=== PATIENT | female | born 1975 | race African-American/Black ===

== ENCOUNTER 2017-11-11 21:33 | Emergency (ER) | payer BC ==
[~2017-11-11] VITALS: Ht 170.2 cm; Wt 95.0 kg
[2017-11-11] MEDS ORDERED: ONDANSETRON HCL INJ 2 MG/ML VIAL IV STA (21:52)
[2017-11-11] MEDS ORDERED: MORPHINE SULFATE INJ 4 MG/ML INJ IV PRN (22:00)
[2017-11-11] MEDS ORDERED: SODIUM CHLORIDE 0.9% 1000ML 1,000 ML IV ONE (22:00)
[2017-11-11] MEDS ORDERED: GARLIPURE600 MG (22:08)
[2017-11-11] MEDS ORDERED: VITAMIN D400 UNIT PO (22:08)
[2017-11-11] MEDS ORDERED: BIOTIN1 MG PO (22:08)
[2017-11-11] MEDS ORDERED: KETOROLAC TROMETHAMINE 30 MG/ML VIAL IV STA (22:11)
[2017-11-11] MEDS ORDERED: MORPHINE SULFATE INJ 4 MG/ML INJ IV ONE (22:15)
[2017-11-11] MEDS ORDERED: IOPAMIDOL 300MG/ML 100 ML INFUS..BTL IV ONE (22:45)
[2017-11-11 23:11] VITALS: BP 122/74
== END 2017-11-11 23:20 | disposition home or self-care (01) ==
LOC: FSED 21:33
DX: R10.31 Right lower quadrant pain (principal); R11.2 Nausea with vomiting, unspecified; Z82.49 Family history of ischemic heart disease and other diseases of the circulatory system
CPT/HCPCS: 74177; 80053; 81003; 81025; 85025; 99283; J1885; J2405; J7030; Q9967

== ENCOUNTER 2017-11-12 13:04 | Emergency (ER) | payer BC ==
[~2017-11-12] VITALS: Ht 170.2 cm; Wt 94.8 kg
[~2017-11-12 13:04] MED LIST: BIOTIN1 MG PO; GARLIPURE600 MG; VITAMIN D400 UNIT PO
== END 2017-11-12 13:54 | disposition left against medical advice (07) ==
LOC: FSED 13:04
DX: R10.32 Left lower quadrant pain (principal)

== ENCOUNTER 2017-11-12 15:59 | Observation (INO) | payer BC ==
[~2017-11-12] VITALS: Ht 170.2 cm; Wt 94.8 kg
[2017-11-12] MEDS ORDERED: KETOROLAC TROMETHAMINE 30 MG/ML VIAL IV STA (17:03)
[2017-11-12] MEDS ORDERED: DIAZEPAM INJ 5 MG/ML 2 ML IV ONE (18:45)
[2017-11-12] MEDS ORDERED: MORPHINE SULFATE 5 MG/ML VIAL IV ONE (20:00)
[2017-11-12] MEDS: SODIUM CHLORIDE 0.9% 1000ML 1,000 ML IV SCH ×2 (20:01→23:56)
[2017-11-12] MEDS ORDERED: IBUPROFEN 400 MG TAB PO PRN (20:15)
[2017-11-12] MEDS: CEFTRIAXONE SOD 1 GM VIAL IV SCH (20:15)
[2017-11-12] MEDS ORDERED: ONDANSETRON HCL 4 MG ORAL DISINTEGRATING TAB PO PRN (20:15)
[2017-11-12] MEDS ORDERED: MORPHINE SULFATE 2 MG/ML SYR IV ONE (20:15)
[2017-11-12 21:45] VITALS: BP 110/80
[2017-11-12] MEDS: MORPHINE SULFATE 2 MG/ML SYR IV PRN (22:23)
[2017-11-13 00:35] VITALS: BP 111/57
[2017-11-13 04:11] VITALS: BP 117/62
[2017-11-13 06:41] LABS: BASOPHILS % 0.3 % (0.0-1.0); EOSINOPHILS # (AUTO) 0.2 (0.0-0.4); EOSINOPHILS % 2.3 % (0.0-6.0); HEMATOCRIT 29.8 % (34.2-44.1); HEMOGLOBIN 10.3 g/dL (12.0-16.0); LYMPHOCYTES # (AUTO) 1.6 (1.0-3.2); LYMPHOCYTES % 21.3 % (18.0-39.1); MEAN CORPUSCULAR HEMOGLOBIN 29.8 pg (28-32); MEAN CORPUSCULAR HGB CONC 34.6 g/dL (31-35); MEAN CORPUSCULAR VOLUME 86.1 fL (81-99); MONOCYTES # (AUTO) 0.8 (0.2-0.8); MONOCYTES % 10.3 % (4.4-11.3); NEUTROPHILS # (AUTO) 4.8 (2.1-6.9); NEUTROPHILS % 65.4 % (38.7-80.0); PLATELET COUNT 227 x10e3/uL (140-360); RED BLOOD COUNT 3.46 x10e6/uL (3.6-5.1); RED CELL DISTRIBUTION WIDTH 12.8 % (11.7-14.4)
[2017-11-13 07:03] LABS: ALANINE AMINOTRANSFERASE 11 IU/L (0-55); ALBUMIN 3.2 g/dL (3.5-5.0); ALBUMIN/GLOBULIN RATIO 0.9 (0.8-2.0); ALKALINE PHOSPHATASE 57 IU/L (40-150); ANION GAP 10.7 mmol/L (8-16); CALCIUM 8.3 mg/dL (8.4-10.2); CARBON DIOXIDE 22 mmol/L (22-29); CHLORIDE 109 mmol/L (98-107); CREATININE, SERUM 0.82 mg/dL (0.57-1.11); EST GLOMERULAR FILTRATION RATE > 60 ML/MIN (60-); GLUCOSE 93 mg/dL (74-118); POTASSIUM 3.7 mmol/L (3.5-5.1); SODIUM 138 mmol/L (136-145)
[2017-11-13 07:20] LABS: BLOOD UREA NITROGEN 9 mg/dL (7-26); BUN/CREATININE RATIO 11 (6-25)
[2017-11-13 07:33] VITALS: BP 117/62
[2017-11-13 08:00] VITALS: BP 119/66
[2017-11-13] MEDS: CEFTRIAXONE SOD 1 GM VIAL IV SCH (08:01)
[2017-11-13] MEDS: SODIUM CHLORIDE 0.9% 1000ML 1,000 ML IV SCH (08:01)
[2017-11-13] MEDS ORDERED: PANTOPRAZOLE 40 MG 10ML VIAL IV SCH (10:00)
--- NOTE | 2017-11-13 10:15 | History and Physical ---
CHIEF COMPLAINT: Abdominal pain. HISTORY OF PRESENT ILLNESS: This is a 42-year-old woman who presents to [facility] Emergency Room with a 1-day history of intense, nonradiating, left lumbar abdominal pain. The patient states that it is possible the pain is originating in her left flank area and then radiating to her left lumbar abdominal area. The patient states she has no history of kidney stones. According to the patient, she had a urinalysis done in the emergency room, and it was unremarkable; but at this time, we are unable to verify those results. In the emergency room, she was found to have a white blood cell count of 7300 with 65% segmented neutrophils. The patient's BUN and creatinine in the emergency room were 9 and 0.82 respectively. AST and ALT were 14 and 11 respectively. The patient's hepatic transaminases were also within normal limits. The patient underwent a CT of the abdomen with intravenous contrast that revealed numerous low-attenuation masses in the spleen as well as markedly enlarged fibroid uterus, otherwise unremarkable. The patient subsequently underwent a CT of the abdomen and pelvis with oral contrast but without intravenous contrast that revealed bowels within normal limits without abnormal bowel wall thickness or dilatation. No abdominal or pelvic lymph nodes were noted to be pathologically enlarged by CT measurement criteria. The CT of the abdomen and pelvis with oral contrast but without intravenous contrast did not reveal any free air. This imaging study also revealed enlarged uterus with multiple areas of lobulated soft-tissue lesions. The CT of the abdomen with oral contrast but no intravenous contrast did reveal lobulated, hypoattenuating lesions within the spleen of uncertain etiology. The patient was admitted for further evaluation and treatment. REVIEW OF SYSTEMS GENERAL: Weight has been stable. No fever or chills. HEENT: No headache. No vision changes. CARDIOVASCULAR/CHEST: No chest pain. No shortness of breath or cough. GI: Abdominal pain as per HPI. The patient denies any nausea or vomiting, though. The patient states she did have 1 episode of diarrhea today. The patient denies any melena or hematochezia. : No UTI symptoms. NEUROMUSCULAR: No limb weakness or numbness. ALLERGIES: NO KNOWN DRUG ALLERGIES. PAST MEDICAL HISTORY 1. Mild obesity. 2. Hypertensive heart disease. 3. Iron deficiency anemia. 4. Vitamin D deficiency. SURGICAL HISTORY 1. Myomectomy in 2009 to remove uterine fibroids. 2. Left knee arthroscopic surgery. FAMILY HISTORY: Noncontributory. SOCIAL HISTORY: This woman is and lives with her . The patient denies any history of tobacco use, but she does drink alcohol socially. MEDICATIONS 1. Zyrtec 10 mg daily. 2. Multivitamin once daily. 3. Vitamin D3 once daily. 4. Biotin once daily. 5. Vitamin E once daily. PHYSICAL EXAMINATION GENERAL: She is awake, alert, fully oriented, in no distress, very pleasant and cooperative with exam. VITAL SIGNS: Blood pressure is 119/66, pulse 98, respiratory rate 18, temperature 99.7, oxygen saturation 98% on room air. INTEGUMENT: Skin is warm and dry. No pallor, jaundice or diaphoresis. HEENT: Anicteric sclerae with moist mucous membranes. NECK: Supple. CARDIOVASCULAR: Tachycardic rate. Regular rhythm. LUNGS: No rales, no rhonchi, no wheezing. ABDOMEN: Slightly distended and taut. She does have tenderness and guarding in the left lumbar abdominal area. No mass is palpated. The patient has hypoactive bowel sounds in all 4 quadrants. EXTREMITIES: No edema or deformity. NEUROLOGIC: Intact. DIAGNOSES 1. Gastroenteritis, likely. 2. Gastritis, likely. 3. Hypertensive heart disease. 4. Mild obesity, body mass index 32. PLAN 1. Reassurance. 2. Intravenous fluids. 3. Intravenous antibiotics. 4. Supportive care. 5. Pain control. 6. Start an intravenous proton pump inhibitor. 7. Will observe closely. Job#: [id number]
[2017-11-13] MEDS: MORPHINE SULFATE 2 MG/ML SYR IV PRN (11:07)
[2017-11-13 12:00] VITALS: BP 113/68
--- NOTE | 2017-11-13 20:52 | Diagnostic Imaging Report ---
PROCEDURE:ABDOMINAL ULTRASOUND COMPARISON:None. INDICATIONS:LEFT LUMBAR ABDOMINAL PAIN FINDINGS: Exam limited by overlying bowel gas. Liver: 15.1 cm. Normal hepatic parenchymal echogenicity. No focal mass. Main portal vein: 1.0 cm. Hepatopetal flow. Gallbladder: No stones or sludge. 1.2 x 0.8 x 1.3 cm echogenic focus with posterior acoustic shadowing located posterior to the gallbladder is only seen in one position (the decubitus view), and cannot be reproduced in other views No gallbladder wall thickening. Common Bile Duct: 0.5 cm. No echogenic filling defect. Sonographic Mooney's sign: Negative Right kidney: 12.1 cm. Normal echogenicity. Mild right hydronephrosis. 1.9 x 1.6 x 1.3 cm cystic, anechoic lesion in the superolateral aspect Left kidney: 10.9 cm. Normal echogenicity. 2.2 x 2.6 x 1.9 cm cystic, anechoic lesion in the superior to mid aspect. 2.6 x 1.7 x 2.0 cm hypoechoic, well-circumscribed lesion with scattered internal echoes in the mid aspect. No stones, hydronephrosis, or obstruction. Spleen: 10.2 cm. There are 2 mildly hyperechoic, non-shadowing foci in the spleen, which measure 2.8 x 2.5 x 2.7 cm and 2.8 x 2.2 x 2.4 cm. Pancreas: Obscured by overlying bowel gas. Inferior vena cava: Normal. Aorta: Normal. Ascites: None. CONCLUSION: 1. no cholelithiasis or sonographic evidence of cholecystitis. 2. Mild right hydronephrosis. 3. 1.9 cm right and 2.6 cm left simple renal cysts. 4. 2.6 cm lesion in the mid aspect of the left kidney, likely represents a minimally complex cyst. 5. Indeterminate splenic lesions. Recommend CT abdomen with contrast for further evaluation. 6. 1.3 cm echogenic focus posterior to the gallbladder is only seen in one position, and probably represents adjacent air in bowel/stomach. Edgardo Netltes M.D. Dictated by: Edgardo Nettles M.D. on 11/13/2017 at 16:16 Electronically approved by: Edgardo Nettles M.D. on 11/13/2017 at 16:16
--- NOTE | 2017-11-14 13:36 | Discharge Summary ---
ADMIT DIAGNOSES 1. Gastroenteritis, likely. 2. Gastritis, likely. 3. Hypertensive heart disease. 4. Mild obesity. BMI 32. DISCHARGE DIAGNOSES 1. Gastroenteritis, resolving. 2. Hypertensive heart disease. 3. Mild obesity. BMI 32. 4. Left renal cyst (2.6 cm). 5. Mild right hydronephrosis. HOSPITAL COURSE: This is a 42-year-old woman who was initially admitted to [facility] with diagnosis of gastroenteritis and perhaps gastritis. During this hospitalization, the patient improved with supportive care which included intravenous fluids, intravenous pantoprazole and intravenous ceftriaxone. The patient had undergone multiple CT's of the abdomen and pelvis, one with oral contrast and the other with intravenous contrast in the emergency room prior to admission. The computer tomography of the abdomen and pelvis revealed nonspecific findings, but they did reveal low attenuation masses in the spleen as well as a markedly enlarged fibroid uterus. The CT of the abdomen and pelvis with oral contrast revealed bowel within normal limits without abnormal bowel wall thickness or dilatation. Also no abdominal or pelvic lymph nodes. Also, no pathologic abdominal or pelvic lymph nodes were appreciated. During her brief hospitalization, she did undergo an ultrasound of the abdomen that did not reveal any cholelithiasis or sonographic evidence of cholecystitis. However, it did reveal mild right hydronephrosis as well as a 1.9 cm right renal cyst and a 2.6 cm left renal cyst that the radiologist felt could be minimally complex cyst. Also indeterminate splenic lesions were appreciated on the abdominal ultrasound. Although the abdominal ultrasound revealed mild right hydronephrosis, her pain was in the left lumbar abdominal area. The patient unfortunately left against medical advice. Thus, the results of the abdominal sonogram were not relayed to the patient. Her condition at discharge was stable with an overall good prognosis. DISCHARGE MEDICATIONS: 1. Zyrtec 2 mg daily. 2. Multivitamin once daily. 3. Vitamin D3 once daily. 4. Biotin once daily. 5. Vitamin E once daily. FOLLOWUP INSTRUCTIONS: Since the patient left against medical advice, she was not provided any discharge instructions. The nurse, however, did instruct the patient to follow up with her primary care physician, namely myself, Dr. Khris Regalaod, within 1-2 weeks of discharge. KHRIS REGALADO MD Job#: [id number] [facility]
== END 2017-11-13 15:56 | disposition left against medical advice (07) ==
LOC: FSED 15:59 → IMCU 21:09
PROVIDERS: ADMIT Internal Medicine; ATTEND Internal Medicine
DX: K52.9 Noninfective gastroenteritis and colitis, unspecified (principal); I11.9 Hypertensive heart disease without heart failure; E66.9 Obesity, unspecified; Z68.32 Body mass index [BMI] 32.0-32.9, adult; N13.30 Unspecified hydronephrosis; N28.1 Cyst of kidney, acquired; D73.89 Other diseases of spleen; N85.2 Hypertrophy of uterus; Z53.29 Procedure and treatment not carried out because of patient's decision for other reasons
CPT/HCPCS: 36415; 74176; 76700; 80048; 80053; 80076; 81003; 85025 ×2; 96374; 96375; 99284; G0378 ×2; J0696 ×2; J1885; J2270 ×2; J3360; J7030 ×2

== ENCOUNTER → 2017-11-19 | Outpatient (CLI) | payer BC ==
[~2017-11-19] MED LIST changes: +GADOBENATE DIMEGLUMINE 0 ML IV ONE; +GADOBENATE DIMEGLUMINE 1 ML IV ONE
--- NOTE | 2017-11-19 18:32 | Diagnostic Imaging Report ---
EXAM: MRI of the abdomen with and without contrast. INDICATION: Renal cyst and splenic lesions. COMPARISON: Outside CTs dated 11/12/2017 and 11/11/2017. TECHNIQUE: Multiplanar and multisequence imaging was performed of the abdomen. T1 and T2-weighted images were obtained with and without contrast. T1-weighted in and [id number] , Dynamic, post gadolinium T1-weighted spoiled gradient echo scans. IV Contrast: 20 cc of MultiHance Oral Contrast: None. Medications: None Discussion: LOWER THORAX: Unremarkable. HEPATOBILIARY: No focal hepatic lesions. No biliary ductal dilation. GALLBLADDER: No radio-opaque stones or sludge. No wall thickening. SPLEEN: No splenomegaly. There are multiple T1 hypointense heterogeneous T2 hyperintense splenic lesions, the largest measuring 3.4 x 3.1 cm (series 7, image 12). There are innumerable septations and no significant enhancement on postcontrast images. PANCREAS: No focal masses or ductal dilatation. ADRENALS: No adrenal nodules KIDNEYS/URETERS: Kidneys enhance symmetrically. No hydronephrosis. No renal mass. Multiple bilateral T2 hyperintense, T1 hypointense nonenhancing lesions, representing cysts. The largest in the left superior pole measures 2.7 x 2.4 cm. GI TRACT: Visualized bowel loops are unremarkable. No evidence of bowel obstruction. LYMPH NODES: No lymphadenopathy. VESSELS: Unremarkable. PERITONEUM / RETROPERITONEUM: No free air or fluid. BONES: Unremarkable. SOFT TISSUES: Unremarkable. Partially imaged markedly enlarged multi fibroid uterus, measuring at least 20 cm in craniocaudal dimension. IMPRESSION: 1. Multiple splenic lesions with characteristics, most consistent with lymphangiomas. Other differential considerations are markedly septated cysts or hamartomas. 2. Bilateral renal cysts 3. Markedly enlarged multi fibroid uterus with mass effect on bowel. Signed by: Dr. Cade Dobbins MD on 11/19/2017 6:28 PM
== END ==
LOC: MRI 16:43
PROVIDERS: ATTEND Internal Medicine
DX: N28.1 Cyst of kidney, acquired (principal); D73.9 Disease of spleen, unspecified
CPT/HCPCS: 74183

== ENCOUNTER → 2019-03-17 | Outpatient (CLI) | payer BC ==
[~2019-03-17] MED LIST changes: -GADOBENATE DIMEGLUMINE 0 ML IV ONE; -GADOBENATE DIMEGLUMINE 1 ML IV ONE
--- NOTE | 2019-03-17 14:05 | Diagnostic Imaging Report ---
EXAM: Renal Ultrasound INDICATION: ^[id number] ^[id number] ^BILATERAL RENAL CYSTS COMPARISON: Abdominal MRI of 11/19/2017 TECHNIQUE: Transverse and longitudinal images of the kidneys and bladder were obtained. FINDINGS: Right Kidney: Length: 11.2 cm Appearance: Normal echogenicity. Collecting system: No hydronephrosis Stones: None Cyst/Mass: Anechoic renal cysts measure 2.0 x 1.1 x 1.5 cm superiorly and 1.8 x 1.4 x 1.5 cm at the midpole. Left Kidney: Length: 10.3 cm Appearance: Normal echogenicity. Collecting system: No hydronephrosis Stones: None Cyst/Mass: Anechoic cyst measuring 2.5 x 2.7 x 2.3 cm at the upper pole and 2.8 x 1.7 x 2.1 cm at the midpole. Bladder: No mass or calculi. Ureteral jets not visualized. Incidental note is made of a 7.0 x 6.9 x 6.1 cm hypoechoic lesion of the uterus, compatible with a fibroid. IMPRESSION: Bilateral renal cysts as above. No hydronephrosis or renal calculi. Incidental note of uterine fibroid. Signed by: Yael Ferrell MD on 03/17/2019 2:02 PM
== END ==
LOC: US 10:58
PROVIDERS: ATTEND Internal Medicine
DX: N28.1 Cyst of kidney, acquired (principal)
CPT/HCPCS: 76770